=== PATIENT | male | born 2000 | race Caucasian/White ===

== ENCOUNTER 2019-07-19 09:53 | Day surgery (SDC) | payer SELFPAY ==
[~2019-07-19 09:53] MED LIST: Lidocaine 1% PF 5 ML VIAL ONE; Ondansetron PF 4 MG/2 ML Vial ONE; PROPOFOL 200 MG/20 ML VIAL ONE; Succinylcholine Chloride 20 MG/ML 10 ml SYRINGE FS ONE
[2019-07-19] MEDS ORDERED: Piperacillin/Tazobactam 3.375 GM VIAL ONE (11:34)
[2019-07-19] MEDS ORDERED: Sodium Chloride 0.9% 100 ML ONE (11:34)
[2019-07-19] MEDS ORDERED: Bupivacaine 0.25% HCL 30 ML VIAL ONE (11:55)
[2019-07-19] MEDS ORDERED: Lidocaine 1% w/Epinephrine 1:100K 20 ML VIAL ONE (11:55)
[2019-07-19] MEDS ORDERED: Fentanyl 100 MCG/2 ML VIAL ONE ×3 (12:11→13:36)
[2019-07-19] MEDS ORDERED: Midazolam HCl 2 mg/2 ml Vial ONE ×2 (12:11→12:15)
--- NOTE | 2019-07-19 13:49 | OP ---
DATE OF PROCEDURE: 07/19/2019 PREOPERATIVE DIAGNOSIS: Acute appendicitis. PROCEDURE PERFORMED: Laparoscopic appendectomy. INDICATIONS: A 19-year-old male, with a 24-hour history of right lower quadrant pain. CT scan showed appendicitis. FINDINGS: Acute gangrenous appendicitis. DESCRIPTION OF PROCEDURE: After informed consent was obtained, the patient was taken to the operating room and given general endotracheal anesthesia, placed in supine position. Abdomen was prepped and draped in usual fashion. Local anesthesia was infiltrated subcutaneously and deep. A subumbilical incision was performed. Subcu divided sharply. The fascia was grasped and 2 stay sutures of 0 Vicryl placed through each side of midline. Midline incised. Digital palpation revealed no local adhesions. A blunt 12-mm trocar inserted. Pneumoperitoneum was created to a pressure of 15 mmHg. The patient was placed in the Trendelenburg position and a 5-mm port placed suprapubic and another 5-mm port placed right lateral abdomen. The appendix was found. The mesoappendix divided utilizing the LigaSure. The base of the appendix was divided utilizing the linear 45 mm white load stapler. The appendix was placed in an endosac and removed from the abdomen in the endosac. Hemostasis was assured. The abdomen was irrigated. Irrigation fluid removed. Trocars and retractors were removed. The fascia was closed with interrupted 0 Vicryl suture. The skin was closed with interrupted 4-0 Rapide. Dermabond was applied. The patient tolerated the procedure well, transferred to recovery in good condition. Sponge and needle count verified correct x2. Job ID: [id number]
[2019-07-19] MEDS ORDERED: Ondansetron ODT 4 MG TAB ONE (15:40)
== END 2019-07-19 16:00 | disposition home or self-care (01) ==
LOC: SDC 09:53
PROVIDERS: ATTEND Surgery
PROC: 0DTJ4ZZ Resection of Appendix, Percutaneous Endoscopic Approach (ICD-10-PCS; principal; 2019-07-19)
DX: K35.891 Other acute appendicitis without perforation, with gangrene (principal); F98.8 Other specified behavioral and emotional disorders with onset usually occurring in childhood and adolescence; Z79.899 Other long term (current) drug therapy
CPT/HCPCS: 88304; J2001; J2250; J2405; J2543; J2704; J3010; J3490; Q0162; S0020